=== PATIENT | male | born 1970 ===

== ENCOUNTER 2018-08-30 12:30 | Day surgery (SDC) | payer OTHER | END 2018-08-30 18:00 | disposition home or self-care (01) | LOC: AMB-ENDOS 12:30 | DX: K57.32 Diverticulitis of large intestine without perforation or abscess without bleeding (principal); K64.1 Second degree hemorrhoids ==

== ENCOUNTER 2020-10-06 10:45 | Inpatient (IN) | payer OTHER ==
[~2020-10-06] VITALS: Ht 167.6 cm; Wt 89.8 kg
[2020-10-06] MEDS ORDERED: COZAAR100 MG PO (13:17)
[2020-10-06] MEDS ORDERED: CLONAZEPAM0.5 MG PO (13:18)
[2020-10-06] MEDS ORDERED: WELLBUTRIN SR150 MG PO (13:18)
[2020-10-06] MEDS ORDERED: PRILOSE (13:19)
[2020-10-12] MEDS ORDERED: PRILOSEC10 MG (10:49)
[2020-10-12] MEDS ORDERED: ST. JOSEPH ASPI81 M2 (10:50)
== END 2020-10-15 19:14 | disposition home or self-care (01) | DRG 330 ==
LOC: SURG 10-12 06:25 → O/R 10-12 06:25 → SURH 10-12 10:45 → SURG 10-12 11:06
PROVIDERS: ADMIT Colon & Rectal Surgery; ATTEND Colon & Rectal Surgery
PROC: 0DTP4ZZ Resection of Rectum, Percutaneous Endoscopic Approach (ICD-10-PCS; 2020-10-12)
PROC: 0WQF4ZZ Repair Abdominal Wall, Percutaneous Endoscopic Approach (ICD-10-PCS; 2020-10-12)
PROC: 4A12X4Z Monitoring of Cardiac Electrical Activity, External Approach (ICD-10-PCS; 2020-10-12)
PROC: 0DBN4ZZ Excision of Sigmoid Colon, Percutaneous Endoscopic Approach (ICD-10-PCS; principal; 2020-10-12 10:45)
DX: K57.32 Diverticulitis of large intestine without perforation or abscess without bleeding (principal); K43.6 Other and unspecified ventral hernia with obstruction, without gangrene; K92.1 Melena; D64.9 Anemia, unspecified; E78.5 Hyperlipidemia, unspecified; I12.9 Hypertensive chronic kidney disease with stage 1 through stage 4 chronic kidney disease, or unspecified chronic kidney disease; N18.2 Chronic kidney disease, stage 2 (mild)

== ENCOUNTER 2020-10-18 18:37 | Emergency (ER) | payer OTHER ==
[~2020-10-18] VITALS: Ht 172.7 cm; Wt 111.1 kg
[~2020-10-18 18:37] MED LIST: CLONAZEPAM0.5 MG PO; COZAAR100 MG PO; PRILOSE; PRILOSEC10 MG; ST. JOSEPH ASPI81 M2; WELLBUTRIN SR150 MG PO
[2020-10-19] MEDS ORDERED: ULTRACET PO (00:52)
[2020-10-19] MEDS ORDERED: INTESTINEX680 M2 PO (00:52)
[2020-10-19] MEDS ORDERED: CIPRO500 MG PO (00:52)
[2020-10-19] MEDS ORDERED: ZOFRAN4 MG PO (00:52)
== END 2020-10-19 01:25 | disposition home or self-care (01) ==
LOC: ER 18:37
DX: G89.18 Other acute postprocedural pain (principal); R10.32 Left lower quadrant pain; R10.12 Left upper quadrant pain; F45.42 Pain disorder with related psychological factors; B96.0 Mycoplasma pneumoniae [M. pneumoniae] as the cause of diseases classified elsewhere; R11.2 Nausea with vomiting, unspecified; R50.9 Fever, unspecified